=== PATIENT | male | born 1995 | race Caucasian/White ===

== ENCOUNTER 2023-01-07 17:07 | Emergency (ER) | payer OTHER ==
[~2023-01-07] VITALS: Ht 162.6 cm; Wt 73.9 kg
[2023-01-07 17:10] VITALS: BP_SYST 122; PULSE 81; RESP 17; TEMP 98.7; O2SAT 97
[2023-01-07 20:12] VITALS: BP_SYST 123; PULSE 79; RESP 18; TEMP 98.7; O2SAT 97
== END 2023-01-07 20:12 | disposition home or self-care (01) ==
LOC: SED 17:07
DX: S63.636A Sprain of interphalangeal joint of right little finger, initial encounter (principal); S63.637A Sprain of interphalangeal joint of left little finger, initial encounter; Z79.899 Other long term (current) drug therapy; X58.XXXA Exposure to other specified factors, initial encounter; Y93.89 Activity, other specified; Y92.89 Other specified places as the place of occurrence of the external cause; Y99.8 Other external cause status
CPT/HCPCS: 73140-TC; 99283